=== PATIENT | male | born 1960 | race Caucasian/White ===

== ENCOUNTER 2021-04-29 20:21 | Emergency (ER) | payer OTHER ==
[~2021-04-29 20:21] MED LIST: ANDROGEL5 GM TOP; LISINOPRIL-HCT1 EAC1 PO; MOBIC7.5 MG PO; NORCO 5-325 TA1 EACH PO; PERCOCET 5-3251 EACH PO; PREDNISONE 10MG10 MG PO; PRILOSEC20 MG PO; VENTOLIN HFA IN18 GM INH; ZYRTEC10 M3 PO
[2021-04-29 20:56] LABS: BASOPHIL 0.8 % (0-2); EOSINOPHIL 1.9 % (0-5); HCT 44.5 % (42.0-52.0); HGB 15.3 g/dl (13.2-18.0); LYMPHOCYTE 20.4 % (15-48); MCH 29.5 pg (25.0-31.0); MCHC 34.4 g/dL (32.0-36.0); MCV 85.9 fL (78.0-100.0); MONOCYTE 6.6 % (0-12); MPV 10.6 fL (6.0-9.5); NEUTROPHIL 69.6 % (41-80); NRBC 0; PLT 293 K/uL (150-400); RBC 5.18 M/uL (4.70-6.00); RDW 13.1 % (11.5-14.0); WBC 12.1 K/uL (4.0-10.5)
[2021-04-29 21:14] LABS: BUN/CREAT RATIO (CALC) 29.3 RATIO; CREATININE 0.82 mg/dL (0.67-1.17); POTASSIUM 3.7 mmol/L (3.5-5.1)
[2021-04-29 22:39] LABS: CORONAVIRUS 2019 SARS-COV-2 NEGATIVE (NEGATIVE); INFLUENZA A NAA NEGATIVE (NEGATIVE)
== END 2021-04-29 23:45 | disposition home or self-care (01) ==
LOC: FER 20:21
PROVIDERS: Internal Medicine
DX: R07.89 Other chest pain (principal); I11.0 Hypertensive heart disease with heart failure; I50.9 Heart failure, unspecified; R06.01 Orthopnea; E11.9 Type 2 diabetes mellitus without complications; Z87.891 Personal history of nicotine dependence; Z20.822 Contact with and (suspected) exposure to COVID-19
CPT/HCPCS: 36415; 71045; 80048; 83880; 84484; 85025; 93005; U0002

== ENCOUNTER 2021-05-15 15:41 | Emergency (ER) | payer OTHER ==
[2021-05-15] MEDS ORDERED: VIBRAMYCIN100 MG PO (17:09)
== END 2021-05-15 17:44 | disposition home or self-care (01) ==
LOC: FER 15:41
DX: S30.862A Insect bite (nonvenomous) of penis, initial encounter (principal); I10 Essential (primary) hypertension; W57.XXXA Bitten or stung by nonvenomous insect and other nonvenomous arthropods, initial encounter
CPT/HCPCS: 99281